=== PATIENT | female | born 2000 | race Caucasian/White ===

== ENCOUNTER 2019-06-23 02:11 | Emergency (ER) | payer MEDICAID ==
[~2019-06-23] VITALS: Ht 162.6 cm; Wt 95.8 kg
[~2019-06-23 02:11] MED LIST: ACET500C5 PO; AMOX500C2 PO; BEN50 PO; CEPH-443 PO; IBUP-1561 PO
[2019-06-23 02:12] VITALS: Ht 162.6 cm; Wt 95.8 kg
[2019-06-23] MEDS ORDERED: LORAZEPAM 0.5 MG TAB PO ONE (03:30)
[2019-06-23 04:35] VITALS: BP 128/72; PULSE 87; RESP 17
--- NOTE | 2019-06-23 06:14 | ERD ---
ER Documentation Chief Complaint Chief Complaint Pt reports anxiety asttack since yesterday, pins and needles all over body HPI Patient is a 18-year-old female presented to ED for an anxiety attack. Patient states she has osnz-irr-oxxadum feeling and sensation all of her body. Patient states this never happened to her before. Patient is very concerned. Patient states she started taking a new metabolism supplement that plna-ubv-fcigvzp and she does not have it with her. The patient denies any allergies to medications. The patient states she does not think she is . The patient states that there is no pain at this time is just more anxiety. The patient states she is been under a lot of stress. Patient denies suicidal homicidal ideation ROS All systems reviewed and are negative except as per history of present illness. Medications Home Meds Active Scripts Cephalexin* (Keflex*) 500 Mg Capsule, 500 MG PO BID for 7 Days, CAP Prov:RISHI PRINGLE PA-C 06/23/19 Diphenhydramine Hcl* (Benadryl*) 50 Mg Cap, 50 MG PO Q6 PRN for AGITATION/ANXIETY, #30 CAP Prov:RISHI PRINGLE PA-C 06/23/19 Acetaminophen* (Tylophen*) 500 Mg Capsule, 1 CAP PO Q6H PRN for PAIN AND OR ELEVATED TEMP, #30 CAP Prov:TEODORO CLEARY PA-C 10/24/16 Ibuprofen* (Motrin*) 400 Mg Tab, 400 MG PO Q6, #30 TAB Prov:TEODORO CLEARY PA-C 10/24/16 Amoxicillin* (Amoxicillin*) 500 Mg Cap, 500 MG PO TID for 10 Days, CAP Prov:TEODORO CLEARY PA-C 10/24/16 Allergies Allergies: Coded Allergies: No Known Allergy (Unverified , 06/23/19) PMhx/Soc Medical and Surgical Hx: pt denies Medical Hx, pt denies Surgical Hx Hx Alcohol Use: No Hx Substance Use: No Hx Tobacco Use: No Smoking Status: Never smoker FmHx Family History: No diabetes, No coronary disease, No other Physical Exam Vitals Vital Signs Date Temp Pulse Resp B/P (MAP) Pulse Ox O2 O2 Flow FiO2 Time Delivery Rate 06/23/19 98.4 87 17 128/72 99 Room Air 04:35 (90) 06/23/19 98.6 100 20 135/82 100 02:12 (99) Physical Exam GENERAL: Anxious HEENT: Atraumatic. Conjunctivae are pink. Pupils equal, round, and reactive to light. There is no scleral icterus. Tympanic membranes clear bilaterally. Oropharynx clear. No nystagmus or photophobia. NECK: C-spine is soft and supple. There is no meningismus. There is no cervical lymphadenopathy. CHEST: Clear to auscultation bilaterally. There are no rales, wheezes or rhonchi. HEART: Regular rate and rhythm. No murmurs, clicks, rubs or gallops. ABDOMEN:Soft, nontender and nondistended. Good bowel sounds. No rebound or guarding. No gross peritonitis. No gross organomegaly or masses. No Rutherford s ign or McBurney point tenderness. BACK: No midline or flank tenderness. Results 24 hrs Laboratory Tests Test 06/23/19 03:26 06/23/19 03:31 Urine Color YELLOW Urine Clarity SLIGHTLY CLOUDY Urine pH 5.0 Urine Specific [place] 1.021 Urine Ketones 2+ mg/dL Urine Nitrite NEGATIVE mg/dL Urine Bilirubin NEGATIVE mg/dL Urine Urobilinogen NEGATIVE mg/dL Urine Leukocyte Esterase NEGATIVE Ernesto/ul Urine Microscopic RBC 6 /HPF Urine Microscopic WBC 6 /HPF Urine Squamous Epithelial Cells FEW /HPF Urine Mucus FEW /HPF Urine Hemoglobin NEGATIVE mg/dL Urine Glucose NEGATIVE mg/dL Urine Total Protein NEGATIVE mg/dl POC Beta HCG, Qualitative NEGATIVE Current Medications Medications Dose Sig/Phan Start Time Status Last (Trade) Ordered Route PRN Stop Time Admin Dose Reason Admin Lorazepam 0.5 mg ONCE ONCE 06/23/19 DC 06/23/19 (Ativan) PO 03:30 06/23/19 03:24 03:31 Procedures/MDM ED course: The patient was stable throughout the ED course. The patient and/or family informed of laboratory and diagnostic imaging results throughout the ED course. Medications given in ER: Ativan Patient tolerated medication well with no adverse reactions. Patient reported improvement in pain. Medical decision making: Is a 18-year-old female presented to ED for possible anxiety attack. Patient is alert oriented x4. Patient states that she started taking a new metabolism s upplement and now has xksn-laf-ztkkczz feeling all of her body. The patient states she has been feeling pretty anxious recently. Patient start taking the supplement about 1 week ago. Patient's urine was negative but also showed that she had a UTI. The patient's vitals remained stable in the ED and the patient is satting at 100%. The patient has no calf tenderness or swelling has no history of DVT. The patient does not smoke. I gave the patient Ativan while in the ED and upon reevaluation she appears to be doing much better. The patient shows no signs of anaphylactic reaction, WI, PE, DVT. The patient denies suicidal homicidal ideation. The patient states she feels much better. Advised patient that she has a UTI and she needs to treated with Keflex outpatient. Advised patient she needs to stop taking the supplement immediately. Patient agrees the treatment plan advised patient symptoms worsen she will return to ER immediately. All questions were answered upon discharge Prescription for home: Keflex Benadryl I have discussed with the patient proper use and common side effects to expert with the medication . I advised the patient/family to speak with the pharmacist dispensing the medication to be advised of any potential drug interac tions with other medication or supplements they may be taking. Discharge: At this time, patient is stable for discharge and outpatient management. I have instructed the patient to follow-up with his\her primary care physician in 1 to 2 days. I have discussed with the patient the possibility of needing to see a specialist for further work-up and imaging studies if symptoms persist. I have instructed the patient to promptly return to the ER for any new or worsening symptoms including increased pain, fever, nausea, vomiting, weakness or LOC. The patient and\or family expressed understanding of and agreement with this plan. All questions were answered. Home care instructions were provided. Disclaimer: Inadvertent spelling and grammatical errors are likely due to EHR\dictation software use and do not reflect on the overall quality of patient care. Also, please note that the electronic time recorded on the note does not necessarily reflect the actual time of the patient encounter. Departure Diagnosis: Primary Impression: Anxiety Additional Impression: UTI (urinary tract infection) Urinary tract infection type: site unspecified Hematuria presence: without hematuria Qualified Codes: N39.0 - Urinary tract infection, site not speci fied Condition: Stable Patient Instructions: Understanding Urinary Tract Infections (UTIs), Anxiety Reaction Referrals: [facility] YOU HAVE RECEIVED A MEDICAL SCREENING EXAM AND THE RESULTS INDICATE THAT YOU DO NOT HAVE A CONDITION THAT REQUIRES URGENT TREATMENT IN THE EMERGENCY DEPARTMENT. FURTHER EVALUATION AND TREATMENT OF YOUR CONDITION CAN WAIT UNTIL YOU ARE SEEN IN YOUR DOCTORS OFFICE WITHIN THE NEXT 1-2 DAYS. IT IS YOUR RESPONSIBILITY TO MAKE AN APPOINTMENT FOR FOLOW-UP CARE. IF YOU HAVE A PRIMARY DOCTOR --you should call your primary doctor and schedule an appointment IF YOU DO NOT HAVE A PRIMARY DOCTOR YOU CAN CALL OUR PHYSICIAN REFERRAL HOTLINE AT IF YOU CAN NOT AFFORD TO SEE A PHYSICIAN YOU CAN CHOSE FROM THE FOLLOWING [facility] [address] [facility] [address] [facility] [address] [facility] [address] [facility] [address] [facility]. [facility] [address] [facility]. [facility] YOU HAVE RECEIVED A MEDICAL SCREENING EXAM AND THE RESULTS INDICATE THAT YOU DO NOT HAVE A CONDITION THAT REQUIRES URGENT TREATMENT IN THE EMERGENCY DEPARTMENT. FURTHER EVALUATION AND TREATMENT OF YOUR CONDITION CAN WAIT UNTIL YOU ARE SEEN IN YOUR DOCTORS OFFICE WITHIN THE NEXT 1-2 DAYS. IT IS YOUR RESPONSIBILITY TO MAKE AN APPOINTMENT FOR FOLOW-UP CARE. IF YOU HAVE A PRIMARY DOCTOR --you should call your primary doctor and schedule and appointment IF YOU DO NOT HAVE A PRIMARY DOCTOR YOU CAN CALL OUR PHYSICIAN REFERRAL HOTLINE AT . IF YOU CAN NOT AFFORD TO SEE A PHYSICIAN YOU CAN CHOSE FROM THE FOLLOWING [facility]: [facility] [address] [place] [address] [facility] [address] [place] [address] [facility] [address] [place] [address] Additional Instructions: Call your primary care doctor TOMORROW for an appointment during the next 1-2 days.See the doctor sooner or return here if your condition worsens before your appointment time. Discontinue the metabolism supplement and all other supplements. Follow-up with your primary care provider and speak with him regarding the supplements RISHI PRINGLE PA-C Jun 23, 2019 06:14
== END 2019-06-23 04:35 | disposition home or self-care (01) ==
LOC: FTE 02:11
DX: F41.9 Anxiety disorder, unspecified (principal); N39.0 Urinary tract infection, site not specified
CPT/HCPCS: 81001; 81003; 81025; Z7610; 99283